=== PATIENT | female | born 1960 | race Caucasian/White ===

== ENCOUNTER 2017-11-22 17:35 | Emergency (ER) | payer MEDICARE, MEDICAID ==
[~2017-11-22] VITALS: Ht 162.6 cm; Wt 56.8 kg
[~2017-11-22 17:35] MED LIST: CIPR-260 PO; HYDR-569 PO; METO-395 PO; QUET-1 PO; QUET200T PO
[2017-11-22 23:06] VITALS: BP 124/74
== END 2017-11-22 23:10 | disposition short-term general hospital (02) ==
LOC: ER 17:36
DX: N89.8 Other specified noninflammatory disorders of vagina (principal); F15.10 Other stimulant abuse, uncomplicated; F12.10 Cannabis abuse, uncomplicated; J44.9 Chronic obstructive pulmonary disease, unspecified; K21.9 Gastro-esophageal reflux disease without esophagitis; F17.200 Nicotine dependence, unspecified, uncomplicated; Z87.442 Personal history of urinary calculi; Z86.19 Personal history of other infectious and parasitic diseases; Z90.49 Acquired absence of other specified parts of digestive tract; Z60.2 Problems related to living alone; Z56.0 Unemployment, unspecified; Z59.0 Homelessness; Z79.899 Other long term (current) drug therapy
CPT/HCPCS: 87210; 99285

== ENCOUNTER 2017-12-11 17:42 | Emergency (ER) | payer MEDICARE, MEDICAID ==
[2017-12-11 18:47] LABS: BASOPHILS # (AUTO) 0.1 X10'3 (0-0.2); EOSINOPHILS # (AUTO) 0.1 X10'3 (0-0.9); EOSINOPHILS % (AUTO) 0.6 % (0-6); HEMATOCRIT 44.2 % (35.0-45.0); HEMOGLOBIN 14.9 g/dl (12.0-16.0); LYMPHOCYTES # (AUTO) 2.6 X10'3 (1.1-4.8); MEAN CORPUSCULAR HEMOGLOBIN 32.2 PG (27.0-31.0); MEAN CORPUSCULAR HGB CONC 33.7 % (33.0-36.5); MEAN CORPUSCULAR VOLUME 95.5 FL (78-98); MEAN PLATELET VOLUME 8.6 FL (7.4-10.4); NEUTROPHILS # (AUTO) 7.6 X10'3 (1.8-7.7); NEUTROPHILS % (AUTO) 66.4 % (42-75); PLATELET COUNT 283 X10'3 (140-440); RED BLOOD COUNT 4.63 X10'6 (4.20-5.60); RED CELL DISTRIBUTION WIDTH 14.1 % (11.5-14.5); WHITE BLOOD COUNT 11.5 X10'3 (4.5-11.0)
[2017-12-11 18:58] LABS: PARTIAL THROMBOPLASTIN TIME 24 SECONDS (22-32); PROTHROMBIN TIME 10.6 SECONDS (9.0-12.0)
[2017-12-11 19:01] LABS: ALANINE AMINOTRANSFERASE 23 U/L (12-78); ALBUMIN 3.3 G/DL (3.4-5.0); ALBUMIN/GLOBULIN RATIO 0.7 (1.1-1.5); ALKALINE PHOSPHATASE 104 IU/L (46-116); ANION GAP 15 (8-16); ASPARTATE AMINO TRANSFERASE 14 U/L (10-37); BILIRUBIN,TOTAL 0.3 MG/DL (0.1-1.0); BLOOD UREA NITROGEN 25 MG/DL (7-18); CALCIUM 9.6 MG/DL (8.5-10.1); CHLORIDE 105 MMOL/L (99-107); CREATININE 1.25 MG/DL (0.40-0.90); GLUCOSE 161 MG/DL (70-104); POTASSIUM 3.8 MMOL/L (3.5-5.1); SODIUM 145 MMOL/L (135-145); TOTAL CARBON DIOXIDE 25.3 MMOL/L (24-32); TOTAL PROTEIN 7.8 G/DL (6.4-8.2); eGFR 44 ML/MIN
[2017-12-11 19:35] LABS: CLARITY,URINE CLOUDY (Clear); COLOR,URINE YELLOW (Yellow); GLUCOSE, URINE NEGATIVE (Neg); KETONES,URINE 15 mg/dl (Neg); LEUKOCYTE ESTERASE ,URINE LARGE (Neg); NITRITES, URINE NEGATIVE (Neg); OCCULT BLOOD,URINE LARGE (Neg); PROTEIN,URINE >=300 mg/dl (Neg)
[2017-12-11] MEDS ORDERED: azithromycin 250mg tablet PO ONE (19:40)
[2017-12-11] MEDS ORDERED: CefTRIAXone 250MG inj IM ONE (19:40)
[2017-12-11 19:43] LABS: UA COLLECTION TYPE CLN CATCH MIDSTREAM
[2017-12-11] MEDS ORDERED: CefTRIAXone 250MG IM Kit w/LIDOcaine IM ONE (19:45)
[2017-12-11 19:57] LABS: BACTERIA,URINE 4+ /HPF (Neg); SQUAMOUS EPITHELIAL CELL,UR MANY /LPF (FEW); WBC,URINE TNTC /HPF (0-4)
[2017-12-11 19:58] LABS: RBC,URINE 20-50 /HPF (0-2)
[2017-12-11] MEDS ORDERED: CIPR-230 PO (20:25)
[2017-12-11] MEDS ORDERED: morphine 5 MG/ML injection IM ONE (20:30)
[2017-12-11 20:45] LABS: URINE AMPHETAMINE SCREEN POSITIVE (Neg); URINE BARBITUATE SCREEN NEGATIVE (Neg); URINE BENZODIAZEPINES SCREEN NEGATIVE (Neg); URINE CANNABINOID SCREEN POSITIVE (Neg); URINE COCAINE SCREEN NEGATIVE (Neg); URINE METHADONE SCREEN NEGATIVE (Neg); URINE OPIATE SCREEN NEGATIVE (Neg); URINE PHENCYCLIDINE SCREEN NEGATIVE (Neg)
[2017-12-11 21:02] VITALS: BP 104/60
[2017-12-13] MEDS ORDERED: HYDR-3965 PO (19:48)
== END 2017-12-11 21:03 | disposition home or self-care (01) ==
LOC: ER 17:42
DX: N21.0 Calculus in bladder (principal); N39.0 Urinary tract infection, site not specified; F15.90 Other stimulant use, unspecified, uncomplicated; J44.9 Chronic obstructive pulmonary disease, unspecified; K21.9 Gastro-esophageal reflux disease without esophagitis; Z90.49 Acquired absence of other specified parts of digestive tract; F12.90 Cannabis use, unspecified, uncomplicated; Z60.2 Problems related to living alone; Z59.0 Homelessness; Z56.0 Unemployment, unspecified
CPT/HCPCS: 36415; 74176; 80053; 80305; 81001; 85025; 85610; 85730; 96372; 99285; J0696

== ENCOUNTER 2018-01-15 16:21 | Emergency (ER) | payer MEDICARE, MEDICAID ==
[~2018-01-15] VITALS: Ht 165.1 cm; Wt 59.1 kg
[~2018-01-15 16:21] MED LIST changes: -CIPR-260 PO; -HYDR-569 PO; -METO-395 PO; -QUET200T PO
[2018-01-15] MEDS ORDERED: HYDROcodone/acetaminophen 10/325mg tab PO ONE (20:30)
[2018-01-15 20:48] LABS: BASOPHILS # (AUTO) 0.1 X10'3 (0-0.2); BASOPHILS % (AUTO) 0.7 % (0-1); EOSINOPHILS # (AUTO) 0.2 X10'3 (0-0.9); EOSINOPHILS % (AUTO) 2.1 % (0-6); HEMATOCRIT 40.2 % (35.0-45.0); HEMOGLOBIN 13.9 g/dl (12.0-16.0); LYMPHOCYTES # (AUTO) 3.2 X10'3 (1.1-4.8); LYMPHOCYTES % (AUTO) 36.4 % (21-51); MEAN CORPUSCULAR HEMOGLOBIN 32.2 PG (27.0-31.0); MEAN CORPUSCULAR HGB CONC 34.6 % (33.0-36.5); MEAN CORPUSCULAR VOLUME 93.2 FL (78-98); MEAN PLATELET VOLUME 8.4 FL (7.4-10.4); MONOCYTES # (AUTO) 0.8 X10'3 (0-0.9); MONOCYTES % (AUTO) 9.3 % (2-12); NEUTROPHILS # (AUTO) 4.5 X10'3 (1.8-7.7); NEUTROPHILS % (AUTO) 51.5 % (42-75); PLATELET COUNT 216 X10'3 (140-440); RED BLOOD COUNT 4.31 X10'6 (4.20-5.60); RED CELL DISTRIBUTION WIDTH 14.1 % (11.5-14.5); WHITE BLOOD COUNT 8.7 X10'3 (4.5-11.0)
[2018-01-15 20:57] LABS: CLARITY,URINE SLIGHTLY CLOUDY (Clear); COLOR,URINE YELLOW (Yellow); GLUCOSE, URINE NEGATIVE (Neg); KETONES,URINE NEGATIVE (Neg); LEUKOCYTE ESTERASE ,URINE LARGE (Neg); OCCULT BLOOD,URINE SMALL (Neg); PH,URINE 7.5 (4.8-8.0); PROTEIN,URINE NEGATIVE (Neg); UROBILINOGEN,URINE 0.2 E.U/dL (0.2-1.0)
[2018-01-15 21:07] LABS: URINE AMPHETAMINE SCREEN POSITIVE (Neg); URINE BARBITUATE SCREEN NEGATIVE (Neg); URINE BENZODIAZEPINES SCREEN NEGATIVE (Neg); URINE CANNABINOID SCREEN POSITIVE (Neg); URINE COCAINE SCREEN NEGATIVE (Neg); URINE METHADONE SCREEN NEGATIVE (Neg); URINE OPIATE SCREEN NEGATIVE (Neg); URINE PHENCYCLIDINE SCREEN NEGATIVE (Neg)
[2018-01-15 21:09] LABS: UA COLLECTION TYPE CLN CATCH MIDSTREAM
[2018-01-15 21:10] LABS: NITRITES, URINE NEGATIVE (Neg)
[2018-01-15 21:11] LABS: BACTERIA,URINE FEW /HPF (Neg); RBC,URINE 0-2 /HPF (0-2); SQUAMOUS EPITHELIAL CELL,UR MANY /LPF (FEW)
[2018-01-15 21:19] LABS: ALANINE AMINOTRANSFERASE 25 U/L (12-78); ALBUMIN 3.1 G/DL (3.4-5.0); ALBUMIN/GLOBULIN RATIO 0.8 (1.1-1.5); ALKALINE PHOSPHATASE 93 IU/L (46-116); ANION GAP 10 (8-16); ASPARTATE AMINO TRANSFERASE 21 U/L (10-37); BILIRUBIN,TOTAL 0.3 MG/DL (0.1-1.0); BLOOD UREA NITROGEN 13 MG/DL (7-18); BUN/CREATININE RATIO 13.4 (6.6-38.0); CALCIUM 8.7 MG/DL (8.5-10.1); CHLORIDE 102 MMOL/L (99-107); CREATININE 0.97 MG/DL (0.40-0.90); GLUCOSE 89 MG/DL (70-104); POTASSIUM 3.5 MMOL/L (3.5-5.1); SODIUM 139 MMOL/L (135-145); TOTAL CARBON DIOXIDE 26.7 MMOL/L (24-32); TOTAL PROTEIN 7.1 G/DL (6.4-8.2); eGFR 59 ML/MIN
[2018-01-15 21:22] LABS: ETHANOL < 0.010 GM/DL (0.0-0.010)
[2018-01-15] MEDS ORDERED: nitrofuran/nitrofuran macrocrysal 100 MG capsule PO ONE (22:40)
[2018-01-16] MEDS: nitrofuran/nitrofuran macrocrysal 100 MG capsule PO SCH ×2 (07:51→20:24)
[2018-01-16] MEDS ORDERED: acetaminophen 325mg tablet PO ONE (15:05)
[2018-01-16] MEDS ORDERED: diphenhydrAMINE 50 mg/ml inj IM ONE (15:25)
[2018-01-16] MEDS ORDERED: LORazepam 2 mg/ml vial IM ONE (15:25)
[2018-01-16] MEDS ORDERED: haloperidol lactate 5mg/ml inj IM ONE (15:25)
[2018-01-16] MEDS: quetiapine 100mg tablet PO SCH (21:49)
[2018-01-17] MEDS: nitrofuran/nitrofuran macrocrysal 100 MG capsule PO SCH ×2 (09:01→20:41)
[2018-01-17] MEDS ORDERED: ibuprofen tablet 400 MG TABLET PO PRN (13:30)
[2018-01-17] MEDS ORDERED: ibuprofen 200mg tablet PO PRN (13:44)
[2018-01-17] MEDS ORDERED: LORazepam 2 mg/ml vial IM ONE (15:00)
[2018-01-17] MEDS ORDERED: haloperidol lactate 5mg/ml inj IM ONE (15:00)
[2018-01-17] MEDS ORDERED: diphenhydrAMINE 50 mg/ml inj IM ONE (15:00)
[2018-01-17] MEDS ORDERED: fluconazole 100mg tablet PO ONE (18:05)
[2018-01-17] MEDS ORDERED: fluconazole 150mg tablet PO ONE (18:30)
[2018-01-17] MEDS: quetiapine 100mg tablet PO SCH (20:41)
[2018-01-18] MEDS: nitrofuran/nitrofuran macrocrysal 100 MG capsule PO SCH ×2 (08:27→21:18)
[2018-01-18] MEDS: ziprasidone IM 20mg inj **IM only IM PRN (11:40)
[2018-01-18] MEDS ORDERED: nicotine 21mg patch - 24 hr TD ONE (18:35)
[2018-01-18] MEDS: quetiapine 100mg tablet PO SCH (21:19)
[2018-01-18] MEDS ORDERED: haloperidol 5mg tablet PO ONE (23:15)
[2018-01-19] MEDS: nitrofuran/nitrofuran macrocrysal 100 MG capsule PO SCH ×2 (07:53→21:12)
[2018-01-19] MEDS: ziprasidone IM 20mg inj **IM only IM PRN (07:54)
[2018-01-19] MEDS: LORazepam 2 mg/ml vial IM PRN (07:54)
[2018-01-19] MEDS ORDERED: fluconazole 100mg tablet PO ONE (12:30)
[2018-01-19] MEDS ORDERED: acyclovir 200 MG capsule PO SCH (12:30)
[2018-01-19] MEDS: doxycycline hyclate 100mg tablet.DR PO SCH ×2 (14:27→21:12)
[2018-01-19] MEDS: metroNIDAZOLE 500mg tablet PO SCH ×2 (14:28→21:12)
[2018-01-19] MEDS ORDERED: nicotine 21mg patch - 24 hr TD ONE (20:45)
[2018-01-19] MEDS: quetiapine 100mg tablet PO SCH (21:12)
[2018-01-20] MEDS: metroNIDAZOLE 500mg tablet PO SCH ×2 (07:37→20:36)
[2018-01-20] MEDS: doxycycline hyclate 100mg tablet.DR PO SCH ×2 (07:37→17:44)
[2018-01-20] MEDS: nitrofuran/nitrofuran macrocrysal 100 MG capsule PO SCH ×2 (08:24→20:36)
[2018-01-20] MEDS: LORazepam 2 mg/ml vial IM PRN (19:01)
[2018-01-20] MEDS: lactobacillus rhamnosus 10,000 MMU CELLS/CAPSULE PO SCH (20:36)
[2018-01-20] MEDS: quetiapine 100mg tablet PO SCH (21:44)
[2018-01-21] MEDS: doxycycline hyclate 100mg tablet.DR PO SCH ×2 (07:47→17:38)
[2018-01-21] MEDS: lactobacillus rhamnosus 10,000 MMU CELLS/CAPSULE PO SCH ×2 (07:47→20:58)
[2018-01-21] MEDS: metroNIDAZOLE 500mg tablet PO SCH ×2 (07:47→20:58)
[2018-01-21] MEDS ORDERED: nicotine 14mg patch - 24hr TD ONE (13:55)
[2018-01-21] MEDS ORDERED: diphenhydrAMINE 25mg capsule PO ONE (13:55)
[2018-01-21] MEDS: LORazepam 2 mg/ml vial IM PRN ×2 (14:11→19:15)
[2018-01-21] MEDS: quetiapine 100mg tablet PO SCH (20:58)
[2018-01-22] MEDS: doxycycline hyclate 100mg tablet.DR PO SCH (08:28)
[2018-01-22] MEDS: lactobacillus rhamnosus 10,000 MMU CELLS/CAPSULE PO SCH (08:29)
[2018-01-22] MEDS: metroNIDAZOLE 500mg tablet PO SCH (08:29)
[2018-01-22] MEDS ORDERED: QUET-1 PO (12:06)
[2018-01-22 12:46] VITALS: BP 120/79
== END 2018-01-22 12:49 ==
LOC: ER 16:21
DX: F79 Unspecified intellectual disabilities (principal); R10.2 Pelvic and perineal pain; N93.9 Abnormal uterine and vaginal bleeding, unspecified; J44.9 Chronic obstructive pulmonary disease, unspecified; K21.9 Gastro-esophageal reflux disease without esophagitis; F20.9 Schizophrenia, unspecified; F32.9 Major depressive disorder, single episode, unspecified; F17.200 Nicotine dependence, unspecified, uncomplicated; F12.10 Cannabis abuse, uncomplicated; F15.10 Other stimulant abuse, uncomplicated; Z79.899 Other long term (current) drug therapy; Z90.49 Acquired absence of other specified parts of digestive tract; Z59.0 Homelessness; Z60.2 Problems related to living alone; Z56.0 Unemployment, unspecified
CPT/HCPCS: 36415; 80053; 80305; 80320; 81001; 81025; 84443; 85025; 96372; 99285; J1200; J1630; J2060; J3486; J3490

== ENCOUNTER 2018-04-14 12:43 | Emergency (ER) | payer MEDICARE, MEDICAID ==
[~2018-04-14] VITALS: Ht 162.6 cm; Wt 122.0 kg
[2018-04-14 13:39] LABS: CLARITY,URINE CLOUDY (Clear); COLOR,URINE YELLOW (Yellow); GLUCOSE, URINE NEGATIVE (Neg); KETONES,URINE TRACE mg/dl (Neg); LEUKOCYTE ESTERASE ,URINE LARGE (Neg); NITRITES, URINE POSITIVE (Neg); OCCULT BLOOD,URINE TRACE-INTACT (Neg); PH,URINE 6.5 (4.8-8.0); PROTEIN,URINE 30 mg/dl (Neg); URINE HCG NEGATIVE (NEG)
[2018-04-14 13:49] LABS: UA COLLECTION TYPE CLN CATCH MIDSTREAM
[2018-04-14 13:51] LABS: BACTERIA,URINE 4+ /HPF (Neg); SQUAMOUS EPITHELIAL CELL,UR MANY /LPF (FEW); WBC,URINE 30-50 /HPF (0-4)
[2018-04-14 13:52] LABS: MUCUS STRANDS FEW /LPF (Neg)
[2018-04-14 14:29] LABS: CLARITY,URINE CLOUDY (Clear); COLOR,URINE YELLOW (Yellow); GLUCOSE, URINE NEGATIVE (Neg); KETONES,URINE TRACE mg/dl (Neg); LEUKOCYTE ESTERASE ,URINE LARGE (Neg); NITRITES, URINE POSITIVE (Neg); OCCULT BLOOD,URINE SMALL (Neg); PROTEIN,URINE 30 mg/dl (Neg)
[2018-04-14 14:30] LABS: UA COLLECTION TYPE CLN CATCH MIDSTREAM
[2018-04-14 14:35] LABS: SQUAMOUS EPITHELIAL CELL,UR MANY /LPF (FEW)
[2018-04-14 14:37] LABS: BACTERIA,URINE 2+ /HPF (Neg); WBC,URINE 50-100 /HPF (0-4)
[2018-04-14] MEDS ORDERED: HYDROcodone/acetaminophen 5mg/325mg tablet PO ONE (14:50)
[2018-04-14 14:53] VITALS: BP 106/73
[2018-04-14] MEDS ORDERED: NAPR-56 PO (15:05)
[2018-04-14] MEDS ORDERED: PHEN-716 PO (15:05)
[2018-04-14] MEDS ORDERED: CEPH500C2 PO (15:05)
[2018-04-14] MEDS ORDERED: cephalexin 500mg capsule PO ONE (15:10)
[2018-04-14] MEDS ORDERED: QUET-1 PO (15:12)
== END 2018-04-14 15:33 | disposition home or self-care (01) ==
LOC: ER 12:44
DX: N21.0 Calculus in bladder (principal); F15.10 Other stimulant abuse, uncomplicated; J44.9 Chronic obstructive pulmonary disease, unspecified; K21.9 Gastro-esophageal reflux disease without esophagitis; F20.9 Schizophrenia, unspecified; F32.9 Major depressive disorder, single episode, unspecified; F17.200 Nicotine dependence, unspecified, uncomplicated; F12.10 Cannabis abuse, uncomplicated; Z90.49 Acquired absence of other specified parts of digestive tract; Z87.11 Personal history of peptic ulcer disease; Z59.0 Homelessness; Z56.0 Unemployment, unspecified; Z79.899 Other long term (current) drug therapy
CPT/HCPCS: 71046; 81001; 81025; 99285